=== PATIENT | male | born 1990 | race Caucasian/White ===

== ENCOUNTER 2017-12-04 18:53 | Emergency (ER) | payer BC ==
[2017-12-04] MEDS: ADACEL/BOOSTRIX VACCINE (DIPHTH/PERTUSS/ACELL/TETANUS)0.5ML SYR (90715) IM (20:45)
== END 2017-12-04 21:10 | disposition home or self-care (01) ==
LOC: M ED 18:53
DX: S61.212A Laceration without foreign body of right middle finger without damage to nail, initial encounter (principal); W45.8XXA Other foreign body or object entering through skin, initial encounter; Y92.009 Unspecified place in unspecified non-institutional (private) residence as the place of occurrence of the external cause; Y93.G1 Activity, food preparation and clean up
CPT/HCPCS: 90715

== ENCOUNTER 2018-10-05 09:41 | Emergency (ER) | payer BC, SELFPAY ==
[~2018-10-05] VITALS: Ht 182.9 cm; Wt 44.4 kg
[2018-10-05 09:42] VITALS: BP 156/85
[2018-10-05] MEDS ORDERED: PARO20TA4 PO (09:47)
[2018-10-05] MEDS ORDERED: PARO20TA3 PO (09:52)
== END 2018-10-05 10:18 | disposition home or self-care (01) ==
LOC: M ED 09:41
DX: Z76.0 Encounter for issue of repeat prescription (principal); F41.9 Anxiety disorder, unspecified; Z79.899 Other long term (current) drug therapy

== ENCOUNTER → 2019-05-18 | Outpatient (REF) | payer BC ==
[~2019-05-18] MED LIST: PARO20TA3 PO; PARO20TA4 PO
[2019-05-18 21:04] LABS: BASO # 0.1 10^3/uL (0.0-0.2); BASO % 0.7 % (0.0-1.0); EOS # 0.2 10^3/uL (0.0-0.5); EOS % 2.4 % (0.0-3.0); HEMATOCRIT 44.1 % (42.0-52.0); HEMOGLOBIN 15.5 g/dl (13.5-17.5); LYMPH # 1.5 10^3/uL (1.5-5.0); LYMPH % 17.4 % (24.0-44.0); MEAN CORPUSCULAR HEMOGLOBIN 30.3 pg (27.0-33.0); MEAN CORPUSCULAR HGB CONC 35.1 g/dl (32.0-36.5); MEAN CORPUSCULAR VOLUME 86.1 fl (80.0-96.0); MONO # 0.6 10^3/uL (0.0-0.8); MONO % 6.8 % (0.0-5.0); NEUTROPHILS # 6.1 10^3/uL (1.5-8.5); NEUTROPHILS % 72.3 % (36.0-66.0); PLATELET COUNT, AUTOMATED 243 10^3/uL (150-450); RED BLOOD COUNT 5.12 10^6/uL (4.30-6.10); WHITE BLOOD COUNT 8.5 10^3/uL (4.0-10.0)
[2019-05-18 21:12] LABS: ALBUMIN 4.5 GM/DL (3.2-5.2); ALT/SGPT 60 U/L (12-78); BLOOD UREA NITROGEN 14 MG/DL (7-18); CARBON DIOXIDE LEVEL 27 MEQ/L (21-32); CHLORIDE LEVEL 107 MEQ/L (98-107); CREATININE FOR GFR 1.26 MG/DL (0.70-1.30); GLOMERULAR FILTRATION RATE > 60.0 (>60); GLUCOSE, FASTING 80 MG/DL (70-100); LDH LACTATE DEHYDROGENASE 217 U/L (87-241); POTASSIUM SERUM 3.7 MEQ/L (3.5-5.1); SODIUM LEVEL 142 MEQ/L (136-145); TOTAL PROTEIN 6.8 GM/DL (6.4-8.2)
[2019-05-18 22:01] LABS: HIV 1&2 SCREEN CENTAUR NEGATIVE (NEGATIVE)
[2019-05-21 11:31] LABS: HEPATITIS C VIRUS ABY INDEX 0.1 INDEX (<0.8)
== END ==
LOC: M SFHCLERA 15:29
PROVIDERS: ATTEND Nurse Practitioner Family
DX: Z00.00 Encounter for general adult medical examination without abnormal findings (principal); R79.89 Other specified abnormal findings of blood chemistry; Z11.59 Encounter for screening for other viral diseases; Z11.4 Encounter for screening for human immunodeficiency virus [HIV]

== ENCOUNTER 2021-07-21 08:25 | Emergency (ER) | payer BC, SELFPAY ==
[~2021-07-21] VITALS: Ht 182.9 cm; Wt 102.3 kg
--- OUTSIDE RECORDS SUMMARY | 2021-07-21 08:32 | CCD ---
Author Author [facility] Organization [facility] Address Unknown Phone Unavailable Care Team Providers Care Nurse Quality Name Role Phone EDDIE PALOMINO Unavailable Unavailable EDDIE PALOMINO Unavailable Unavailable Raúl, R Noemy SUPERVISOR CUSTOMER SERVICES Unavailable Unavailable Raúl, R Noemy SUPERVISOR CUSTOMER SERVICES Unavailable Unavailable Raúl, R Noemy SUPERVISOR CUSTOMER SERVICES Unavailable Unavailable Raúl, R Noemy SUPERVISOR CUSTOMER SERVICES Unavailable Unavailable Raúl, R Noemy SUPERVISOR CUSTOMER SERVICES Unavailable Unavailable Raúl, R Noemy SUPERVISOR CUSTOMER SERVICES Unavailable Unavailable Raúl, R Noemy SUPERVISOR CUSTOMER SERVICES Unavailable Unavailable Raúl, R Noemy SUPERVISOR CUSTOMER SERVICES Unavailable Unavailable Raúl, R Noemy SUPERVISOR CUSTOMER SERVICES Unavailable Unavailable Raúl, R Noemy SUPERVISOR CUSTOMER SERVICES Unavailable Unavailable Raúl, R Noemy SUPERVISOR CUSTOMER SERVICES Unavailable Unavailable Raúl, R Noemy SUPERVISOR CUSTOMER SERVICES Unavailable Unavailable Raúl, R Noemy SUPERVISOR CUSTOMER SERVICES Unavailable Unavailable Raúl, R Noemy SUPERVISOR CUSTOMER SERVICES Unavailable Unavailable Raúl, R Noemy SUPERVISOR CUSTOMER SERVICES Unavailable Unavailable Raúl, R Noemy SUPERVISOR CUSTOMER SERVICES Unavailable Unavailable Raúl, R Nomey SUPERVISOR CUSTOMER SERVICES Unavailable Unavailable Raúl, R Noemy SUPERVISOR CUSTOMER SERVICES Unavailable Unavailable Raúl, R Noemy SUPERVISOR CUSTOMER SERVICES Unavailable Unavailable Raúl, R Noemy SUPERVISOR CUSTOMER SERVICES Unavailable Unavailable Raúl, R Noemy SUPERVISOR CUSTOMER SERVICES Unavailable Unavailable Raúl, R Noemy SUPERVISOR CUSTOMER SERVICES Unavailable Unavailable Raúl, R Noemy SUPERVISOR CUSTOMER SERVICES Unavailable Unavailable Raúl, R Noemy SUPERVISOR CUSTOMER SERVICES Unavailable Unavailable Raúl, R Noemy SUPERVISOR CUSTOMER SERVICES Unavailable Unavailable Raúl, R Noemy SUPERVISOR CUSTOMER SERVICES Unavailable Unavailable Raúl, R Noemy SUPERVISOR CUSTOMER SERVICES Unavailable Unavailable Raúl, R Noemy SUPERVISOR CUSTOMER SERVICES Unavailable Unavailable Raúl, R Noemy SUPERVISOR CUSTOMER SERVICES Unavailable Unavailable Raúl, R Noemy SUPERVISOR CUSTOMER SERVICES Unavailable Unavailable Raúl, R Noemy SUPERVISOR CUSTOMER SERVICES Unavailable Unavailable Raúl, R Noemy SUPERVISOR CUSTOMER SERVICES Unavailable Unavailable Raúl, R Noemy SUPERVISOR CUSTOMER SERVICES Unavailable Unavailable Raúl, R Noemy SUPERVISOR CUSTOMER SERVICES Unavailable Unavailable Raúl, R Noemy SUPERVISOR CUSTOMER SERVICES Unavailable Unavailable Raúl, R Noemy SUPERVISOR CUSTOMER SERVICES Unavailable Unavailable Raúl, R Noemy SUPERVISOR CUSTOMER SERVICES Unavailable Unavailable Raúl, R Noemy SUPERVISOR CUSTOMER SERVICES Unavailable Unavailable Raúl, R Noemy SUPERVISOR CUSTOMER SERVICES Unavailable Unavailable Raúl, R Noemy SUPERVISOR CUSTOMER SERVICES Unavailable Unavailable Re-disclosure Warning The records that you are about to access may contain information from federally-assisted alcohol or drug abuse programs. If such information is present, then the following federally mandated warning applies: This information has been disclosed to you from records protected by federal confidentiality rules (42 CFR part 2). The federal rules prohibit you from making any further disclosure of this information unless further disclosure is expressly permitted by the written consent of the person to whom it pertains or as otherwise permitted by 42 CFR part 2. A general authorization for the release of medical or other information is NOT sufficient for this purpose. The Federal rules restrict any use of the information to criminally investigate or prosecute any alcohol or drug abuse patient.The records that you are about to access may contain highly sensitive health information, the redisclosure of which is protected by Article 27-F of the [facility] Public Health law. If you continue you may have access to information: Regarding HIV / AIDS; Provided by facilities licensed or operated by the [facility] Office of Mental Health; or Provided by the [facility] Office for People With Developmental Disabilities. If such information is present, then the following [facility] mandated warning applies: This information has been disclosed to you from confidential records which are protected by state law. State law prohibits you from making any further disclosure of this information without the specific written consent of the person to whom it pertains, or as otherwise permitted by law. Any unauthorized further disclosure in violation of state law may result in a fine or usp sentence or both. A general authorization for the release of medical or other information is NOT sufficient authorization for further disc losure. Encounters Encounter Providers Location Date Indications Data Source(s ) Emergency Attender: EDDIE Clayer: Noemy Raúl Jean NP 05/29/2021 10:47:00 PM EDT - 05/29/2021 11:33:00 PM EDT [facility] Patient discharged. [place] [address] [facility] [address] 09/24/2020 12:00:00 AM EST eCW1 ([facility]) [place] [address] [facility] [address] 09/11/2020 12:00:00 AM EST eCW1 ([facility]) [place] [address] [facility] [place] [address] 08/15/2020 12:00:00 AM EST eCW1 ([facility]) Outpatient [address] [facility] [address] 06/24/2020 12:00:00 AM EDT eCW1 ([facility]) Immunizations Vaccine Date Status Description Data Source(s) COVID-19 VACCINE [facility] 05/22/2021 12:00:00 AM EDT completed [facility] Vaccine Series Complete: YESThis Data wa s Submitted to [facility] Via [facility]. COVID-19 VACCINE [facility] 05/01/2021 12:00:00 AM EDT completed [facility] Vaccine Series Complete: NOThis Data was Submitted to [facility]. Medications Medication Brand Name Start Date Product Form Dose Route Admi nistrative Instructions Pharmacy Instructions Status Indications Reaction Description Data Source(s) Acetaminophen 300 MG / Codeine Phosphate 30 MG Oral Ta blet 300-30 mg ACETAMINOPHEN WITH CODEINE 06/03/2021 12:00:00 AM EDT tablet 10 TAKE ONE TABLET BY MOUTH EVERY 4 HOURS NEEDED FOR ACUTE PAIN , MAXIMUM DAILY DOSE = 6 TABLETS TAKE ONE TABLET BY MOUTH EVERY 4 HOURS A S NEEDED FOR ACUTE PAIN , MAXIMUM DAILY DOSE = 6 TABLETS SOLD: 06/03/2021 [facility] 500 mg 05/30/2021 12:00:00 AM EDT tablet 21 TAKE ONE TABLET BY MOUTH THREE TIMES A DAY TAKE ONE TABLET BY MOUTH THREE TIMES A DAY SOLD: 05/30/2021 [facility] Paroxetine HCl 20 MG Paroxetine HCl 20 MG 09/25/2020 12:00:00 AM ES T 1.0 {tablet_in_the_morning} active Paroxeti ne HCl 20 MG eCW1 ([facility]) 20 mg 09/25/2020 12:00:00 AM EST tablet 90 TAKE ONE TABLET BY MOUTH EVERY MORNING TAKE ONE TABLET BY MOUTH EVERY MORNING SOLD: 09/25/2020 [facility] 20 mg 09/25/2020 12:00:00 AM EST tablet 90 TAKE ONE TABLET BY MOUTH EVERY MORNING TAKE ONE TABLET BY MOUTH EVERY MORNING SOLD: 06/16/2021 [facility] 20 mg 09/25/2020 12:00:00 AM EST tablet 90 TAKE ONE TABLET BY MOUTH EVERY MORNING TAKE ONE TABLET BY MOUTH EVERY MORNING SOLD: 03/16/2021 [facility] 20 mg 09/25/2020 12:00:00 AM EST tablet 90 TAKE ONE TABLET BY MOUTH EVERY MORNING TAKE ONE TABLET BY MOUTH EVERY MORNING SOLD: 12/18/2020 [facility] 25 mg 09/16/2020 12:00:00 AM EST tablet 90 TAKE ONE TABLET BY MOUTH WITH FOOD DAILY TAKE ONE TABLET BY MOUTH WITH FOOD DAILY SOLD: 03/16/2021 [facility] 25 mg 09/16/2020 12:00:00 AM EST tablet 90 TAKE ONE TABLET BY MOUTH WITH FOOD DAILY TAKE ONE TABLET BY MOUTH WITH FOOD DAILY SOLD: 12/18/2020 [facility] 25 mg 09/16/2020 12:00:00 AM EST tablet 90 TAKE ONE TABLET BY MOUTH WITH FOOD DAILY TAKE ONE TABLET BY MOUTH WITH FOOD DAILY SOLD: 09/18/2020 [facility] 50 mg 09/16/2020 12:00:00 AM EST tablet 90 TAKE ONE TABLET BY MOUTH ONCE A DAY TAKE ONE TABLET BY MOUTH ONCE A DAY SOLD: 09/18/2020 [facility] 25 mg 09/16/2020 12:00:00 AM EST tablet 90 TAKE ONE TABLET BY MOUTH WITH FOOD DAILY TAKE ONE TABLET BY MOUTH WITH FOOD DAILY SOLD: 06/16/2021 [facility] atomoxetine 40 MG Oral Capsule [Strattera] Strattera 40 MG S trattera 40 MG 08/15/2020 12:00:00 AM EST active Strattera 40 MG eCW1 ([facility]) atomoxetine 40 MG Oral Capsule [Strattera] Strattera 40 MG S trattera 40 MG 08/15/2020 12:00:00 AM EST active Strattera 40 MG eCW1 ([facility]) atomoxetine 40 MG Oral Capsule [Strattera] Strattera 40 MG S trattera 40 MG 08/15/2020 12:00:00 AM EST active Strattera 40 MG eCW1 ([facility]) atomoxetine 40 MG Oral Capsule [Strattera] Strattera 40 MG S trattera 40 MG 08/15/2020 12:00:00 AM EST active Strattera 40 MG eCW1 ([facility]) Sertraline 50 MG Oral Tablet Sertraline HCl 50 MG Sertraline HCl 50 MG 06/24/2020 12:00:00 AM EDT 1.0 {tablet} active Sertraline HCl 50 MG eCW1 ([facility]) Sertraline 50 MG Oral Tablet Sertraline HCl 50 MG Sertraline HCl 50 MG 06/24/2020 12:00:00 AM EDT 1.0 {tablet} active Sertraline HCl 50 MG eCW1 ([facility]) 50 mg 06/24/2020 12:00:00 AM EDT tablet 90 TAKE 1 TABLET BY MOUTH DAILY TAKE 1 TABLET BY MOUTH DAILY SOLD: 06/25/2020 [facility] Sertraline 50 MG Oral Tablet Sertraline HCl 50 MG Sertraline HCl 50 MG 06/24/2020 12:00:00 AM EDT 1.0 {tablet} active Sertraline HCl 50 MG eCW1 ([facility]) Sertraline 50 MG Oral Tablet Sertraline HCl 50 MG Sertraline HCl 50 MG 06/24/2020 12:00:00 AM EDT 1.0 {tablet} active Sertraline HCl 50 MG eCW1 ([facility]) 25 mg 03/14/2020 12:00:00 AM EDT tablet 90 TAKE ONE TABLET BY MOUTH EVERY DAY WITH FOOD TAKE ONE TABLET BY MOUTH EVERY DAY WITH FOOD SOLD: 06/20/2020 [facility] 20 mg 03/13/2020 12:00:00 AM EDT tablet 90 TAKE ONE TABLET BY MOUTH EVERY MORNING TAKE ONE TABLET BY MOUTH EVERY MORNING SOLD: 06/20/2020 [facility] Insurance Providers Payer name Policy type / Coverage type Policy ID Covered libertarian ID Covered libertarian's relationship to larson Policy Larson Plan Information [employer] - [employer]/B lue Shield [id number] Self [id number] RPR- FFS Self Pay [id number] Self [id number] SELF PAY [id number] S [id number] BCBS [facility] 190/690 [id number] SP [id number] SELF PAY O [id number] S [facility] O [id number] S [id number] [facility] O [id number] S [id number] [employer]BS [place] PPO 302/307 [id number] SP [id number] BCBS 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 Diagnosis 05/29/2021 10:47:00 PM [facility] K04.7 Periapical abscess without sinus PERIAPICAL ABSC ESS WITHOUT SINUS Diagnosis 05/29/2021 10:47:00 PM [facility] K08.89 OTHER SPECIFIED DISORDERS OF TEETH AND S UPPORTING STRUCTURES OTHER SPECIFIED DISORDERS OF TEETH AND SUPPORTING STRUCTURES Diagnosis 05/29/2021 10:47:00 PM [facility] R41.840 [id number] Difficulty concentrating Problem 06/24/2020 12:00:00 AM EDT eCW1 ([facility]) Surgeries/Procedures No Information Results ID Date Data Source [id number] 05/30/2021 03:56:00 AM EDT [facility] l Patient: SAM POLLACK Observation Report - [facility].VisitID: [id number] [place] [address] [phone], MRegistration Date/Time: 05/29/2021 21:12 Weight:102 kg (S). Height/Length:72 inches (S). BMI:30.5 PAST HISTORYProblems:Anxiety Reaction.Sinus Tachycardia. Additional Surgeries:no known surgeries. Medications:PARoxetine HCl Oral (Tablet 20 mg) 1 tablet, daily, last dose today.Metoprolol Tartrate Oral 25 mg, daily, last dose today. Allergies:No Known Drug Allergy. (Electronically signed by Eddie Palomino PA-C 05/30/2021 03:55) Name Value Range Interpretation Code Description Data Beronica rce(s) Supporting Document(s) ID Date Data Source [id number] 09/04/2020 12:00:00 AM EST [facility] Name Value Range Interpretation Code Description Data Beronica rce(s) Supporting Document(s) SARS-CoV2 Rapid Antigen [facility] This lab was ordered by [facility] and reported by [facility]. Procedure Social History Code Duration Value Status Description Data Source(s ) Smoking 08/15/2020 12:00:00 AM EST Never Smoker completed Never S moker eCW1 ([facility]) Smoking 08/15/2020 12:00:00 AM EST Never Smoker completed Never S moker eCW1 ([facility]) Smoking 08/15/2020 12:00:00 AM EST Never Smoker completed Never S moker eCW1 ([facility]) Smoking 08/15/2020 12:00:00 AM EST Never Smoker completed Never S moker eCW1 ([facility]) Smoking 06/24/2020 12:00:00 AM EDT Never Smoker completed Never S moker eCW1 ([facility]) Vital Signs ID Date Data Source UNK Name Value Range Interpretation Code Description Data Source(s) Body weight 212.8 [lb_av] 212.8 [lb_av] eCW1 ([facility]) Body height 72 [in_i] 72 [in_i] eCW1 ([facility]) Body mass index (BMI) [Ratio] 28.86 kg/m2 28.86 kg/m2 eCW1 ([facility]) Heart rate 64 /min 64 /min eCW1 ([facility]) Respiratory rate 17 /min 17 /min eCW1 ([facility]) Body temperature 98.4 [degF] 98.4 [degF] eCW1 ( [facility]) Systolic blood pressure 126 mm[Hg] 126 mm[Hg] e CW1 ([facility]) Diastolic blood pressure 70 mm[Hg] 70 mm[Hg] eCW1 ([facility]) Body height 72 [in_i] 72 [in_i] eCW1 ([facility]) Heart rate 88 /min 88 /min eCW1 ([facility]) Respiratory rate 16 /min 16 /min eCW1 ([facility]) Body temperature 99.0 [degF] 99.0 [degF] eCW1 ( [facility]) Systolic blood pressure 131 mm[Hg] 131 mm[Hg] e CW1 ([facility]) Diastolic blood pressure 73 mm[Hg] 73 mm[Hg] eCW1 ([facility]) Body weight 211 [lb_av] 211 [lb_av] eCW1 ([facility]) Body mass index (BMI) [Ratio] 28.61 kg/m2 28.61 kg/m2 eCW1 ([facility]) Patient Treatment Plan of Care Planned Activity Planned Date Details Description Data Source (s) Paroxetine HCl 20 MG 09/25/2020 12:00:00 AM EST eCW1 ([facility]) atomoxetine 40 MG Oral Capsule [Strattera] 08/15/2020 12:00:[address] eCW1 ([facility]) atomoxetine 40 MG Oral Capsule [Strattera] 08/15/2020 12:00:[address] eCW1 ([facility]) atomoxetine 40 MG Oral Capsule [Strattera] 08/15/2020 12:00:[address] eCW1 ([facility]) atomoxetine 40 MG Oral Capsule [Strattera] 08/15/2020 12:00:[address] eCW1 ([facility]) Sertraline 50 MG Oral Tablet 06/24/2020 12:00:00 AM EDT eCW1 ([facility]) Sertraline 50 MG Oral Tablet 06/24/2020 12:00:00 AM EDT eCW1 ([facility])
--- OUTSIDE RECORDS SUMMARY | 2021-07-21 08:32 | CCD | Continuity of Care Document ---
Author Author [facility] Address [address] [place] [address] Phone Care Team Providers Care Avionics Electrical Engineer Name Role Phone JB FRASER PCP Chief Complaint and Reason for Visit Reason for Visit TOOTH AND JAW PAIN/ SWELLING LEFT SIDE X 2 DAYS Health Concerns Health Concerns may be documented in an alternate section. Allergies, Adverse Reactions, Alerts No allergy information available. Social History Assigned Sex Male Problems No problem information available. Medications No medication information available. Immunizations No Immunization Information Available Medical Equipment No Medical Equipment Information available Procedures No procedure information available. Relevant Diagnostic Tests and/or Laboratory Data No known relevant diagnostic tests and/or laboratory data. Vital Signs No vital signs result information available. Insurance Providers Guarantor SAM POLLACK Address [address] [facility] [address] Contact Info. Home Phone: Payer Policy Id Coverage Id Subscriber's Name Subscriber Id Effective Date Expiration Date SELF PAY [id number] SAM POLLACK Encounters Encounter Location(s) [facility]/Admit Date Discharge/Depart Date Provider(s) Departed Emergency [facility] May 29, 2021 5:11pm May 29, 2021 7:33pm EDDIE PALOMINO Functional Status No Functional Status information available Mental Status No Mental Status Information Available Assessments No Assessments Information Available Goals Goals may be documented in an alternate section.
[2021-07-21] MEDS ORDERED: METO1TAB87 (08:45)
--- OUTSIDE RECORDS SUMMARY | 2021-07-21 09:54 | CCD ---
Author Author [facility] Organization [facility] Address Unknown Phone Unavailable Care Team Providers Care Office Technician Name Role Phone EDDIE PALOMINO Unavailable Unavailable EDIDE PALOMINO Unavailable Unavailable Raúl, R Noemy CHIEF OF FIELD OPERATIONS Unavailable Unavailable Raúl, R Noemy CHIEF OF FIELD OPERATIONS Unavailable Unavailable Raúl, R Noemy CHIEF OF FIELD OPERATIONS Unavailable Unavailable Raúl, R Noemy CHIEF OF FIELD OPERATIONS Unavailable Unavailable Raúl, R Noemy CHIEF OF FIELD OPERATIONS Unavailable Unavailable Raúl, R Noemy CHIEF OF FIELD OPERATIONS Unavailable Unavailable Raúl, R Noemy CHIEF OF FIELD OPERATIONS Unavailable Unavailable Raúl, R Noemy CHIEF OF FIELD OPERATIONS Unavailable Unavailable Raúl, R Noemy CHIEF OF FIELD OPERATIONS Unavailable Unavailable Raúl, R Noemy CHIEF OF FIELD OPERATIONS Unavailable Unavailable Raúl, R Noemy CHIEF OF FIELD OPERATIONS Unavailable Unavailable Raúl, R Noemy CHIEF OF FIELD OPERATIONS Unavailable Unavailable Raúl, R Noemy CHIEF OF FIELD OPERATIONS Unavailable Unavailable Raúl, R Noemy CHIEF OF FIELD OPERATIONS Unavailable Unavailable Raúl, R Noemy CHIEF OF FIELD OPERATIONS Unavailable Unavailable Raúl, R Noemy CHIEF OF FIELD OPERATIONS Unavailable Unavailable Raúl, R Noemy CHIEF OF FIELD OPERATIONS Unavailable Unavailable Raúl, R Noemy CHIEF OF FIELD OPERATIONS Unavailable Unavailable Raúl, R Noemy CHIEF OF FIELD OPERATIONS Unavailable Unavailable Raúl, R Noemy CHIEF OF FIELD OPERATIONS Unavailable Unavailable Raúl, R Noemy CHIEF OF FIELD OPERATIONS Unavailable Unavailable Raúl, R Noemy CHIEF OF FIELD OPERATIONS Unavailable Unavailable Raúl, R Noemy CHIEF OF FIELD OPERATIONS Unavailable Unavailable Raúl, R Noemy CHIEF OF FIELD OPERATIONS Unavailable Unavailable Raúl, R Noemy CHIEF OF FIELD OPERATIONS Unavailable Unavailable Raúl, R Noemy CHIEF OF FIELD OPERATIONS Unavailable Unavailable Raúl, R Noemy CHIEF OF FIELD OPERATIONS Unavailable Unavailable Raúl, R Noemy CHIEF OF FIELD OPERATIONS Unavailable Unavailable Raúl, R Noemy CHIEF OF FIELD OPERATIONS Unavailable Unavailable Raúl, R Noemy CHIEF OF FIELD OPERATIONS Unavailable Unavailable Raúl, R Noemy CHIEF OF FIELD OPERATIONS Unavailable Unavailable Raúl, R Noemy CHIEF OF FIELD OPERATIONS Unavailable Unavailable Raúl, R Noemy CHIEF OF FIELD OPERATIONS Unavailable Unavailable Raúl, R Noemy CHIEF OF FIELD OPERATIONS Unavailable Unavailable Raúl, R Noemy CHIEF OF FIELD OPERATIONS Unavailable Unavailable Raúl, R Noemy CHIEF OF FIELD OPERATIONS Unavailable Unavailable Raúl, R Noemy CHIEF OF FIELD OPERATIONS Unavailable Unavailable Raúl, R Noemy CHIEF OF FIELD OPERATIONS Unavailable Unavailable Raúl, R Noemy CHIEF OF FIELD OPERATIONS Unavailable Unavailable Raúl, R Noemy CHIEF OF FIELD OPERATIONS Unavailable Unavailable Re-disclosure Warning The records that [...] is protected by Article 27-F of the [facility] Public Health law. If you continue you may have access to information: Regarding HIV / AIDS; Provided by facilities licensed or operated by the [facility] Office of Mental Health; or Provided by the [facility] Office for People With Developmental Disabilities. If such information is present, then the following [facility] mandated warning applies: This information has been [...] law may result in a fine or [place] [facility] [place] sentence or both. A general authorization for the release of medical or other information is NOT sufficient authorization for further disc losure. Encounters Encounter Providers Location Date Indications Data Source(s ) Emergency Attender: EDDIE Clayer: Noemy Raúl Jean NP 05/29/2021 10:47:00 PM EDT - 05/29/2021 11:33:00 PM EDT [facility] Patient discharged. [place] [address] [facility] [address] 09/24/2020 12:00:00 AM EST eCW1 (Critical access hospital) [place] [address] [facility] [address] 09/11/2020 12:00:00 AM EST eCW1 (Critical access hospital) Outpatient [address] [facility] [place] [address] 08/15/2020 12:00:00 AM EST eCW1 (Critical access hospital) [place] [address] [facility] [address] 06/24/2020 12:00:00 AM EDT eCW1 (Critical access hospital) Immunizations Vaccine Date Status Description Data Source(s) COVID-19 VACCINE [facility] 05/22/2021 12:00:00 AM EDT completed [facility] Vaccine Series Complete: YESThis Data wa s Submitted to [facility]. COVID-19 VACCINE [facility] 05/01/2021 12:00:00 AM EDT completed [facility] Vaccine Series Complete: NOThis Data was Submitted to [facility] [employer]. Medications Medication Brand Name Start Date Product [...] active Paroxeti ne HCl 20 MG eCW1 ([facility]) 20 mg 09/25/2020 12:00:00 AM EST tablet [...] AM EST active Strattera 40 MG eCW1 ([facility]) atomoxetine 40 MG Oral Capsule [Strattera] Strattera 40 MG S trattera 40 MG 08/15/2020 12:00:00 AM EST active Strattera 40 MG eCW1 ([facility]) atomoxetine 40 MG Oral Capsule [Strattera] Strattera 40 MG S trattera 40 MG 08/15/2020 12:00:00 AM EST active Strattera 40 MG eCW1 ([facility]) atomoxetine 40 MG Oral Capsule [Strattera] Strattera 40 MG S trattera 40 MG 08/15/2020 12:00:00 AM EST active Strattera 40 MG eCW1 ([facility]) Sertraline 50 MG Oral Tablet Sertraline HCl 50 MG Sertraline HCl 50 MG 06/24/2020 12:00:00 AM EDT 1.0 {tablet} active Sertraline HCl 50 MG eCW1 ([facility]) Sertraline 50 MG Oral Tablet Sertraline HCl 50 MG Sertraline HCl 50 MG 06/24/2020 12:00:00 AM EDT 1.0 {tablet} active Sertraline HCl 50 MG eCW1 ([facility]) 50 mg 06/24/2020 12:00:00 AM EDT tablet 90 TAKE 1 TABLET BY MOUTH DAILY TAKE 1 TABLET BY MOUTH DAILY SOLD: 06/25/2020 [facility] Sertraline 50 MG Oral Tablet Sertraline HCl 50 MG Sertraline HCl 50 MG 06/24/2020 12:00:00 AM EDT 1.0 {tablet} active Sertraline HCl 50 MG eCW1 ([facility]) Sertraline 50 MG Oral Tablet Sertraline HCl 50 MG Sertraline HCl 50 MG 06/24/2020 12:00:00 AM EDT 1.0 {tablet} active Sertraline HCl 50 MG eCW1 ([facility]) 25 mg 03/14/2020 12:00:00 AM EDT tablet [...] type / Coverage type Policy ID Covered constitution party ID Covered constitution party's relationship to larson Policy [place] Plan Information [employer] - [place] [employer]/B lue Shield [id number] Self [id number] RPR- FFS Self Pay [id number] Self [id number] SELF PAY [id number] S [id number] [employer] [place] 190/690 [id number] SP [id number] SELF PAY O [id number] S [facility] O [id number] S [id number] [facility] O [id number] S [id number] SELF PAY ONLY [id number] SP [id number] [facility]BS [facility] 190/690 [id number] SP [id number] [employer]BS [place] PPO 302/307 [id number] SP [id number] Problems, Conditions, and Diagnoses Code Display Name Description Problem Type Effective Dates Data Source(s) Z87.891 Personal history of nicotine dependence PERSONAL HISTORY OF NICOTINE DEPENDENCE Diagnosis 05/29/2021 10:47:00 PM T [facility] 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 Diagnosis 05/29/2021 10:47:00 PM [facility] K04.7 Periapical abscess without sinus PERIAPICAL ABSC ESS WITHOUT SINUS Diagnosis 05/29/2021 10:47:00 PM [facility] K08.89 OTHER SPECIFIED DISORDERS OF TEETH AND S UPPORTING STRUCTURES OTHER SPECIFIED DISORDERS OF TEETH AND SUPPORTING STRUCTURES Diagnosis 05/29/2021 10:47:00 PM [facility] R41.840 [id number] Difficulty concentrating Problem 06/24/2020 12:00:00 AM EDT eCW1 ([facility]) Surgeries/Procedures No Information Results ID Date Data Source [id number] 05/30/2021 03:56:00 AM EDT [facility] l Patient: SAM POLLACK Observation Report - Physicians/Mid Levels [facility].VisitID: [id number] [place] [address] [phone], MRegistration Date/Time: 05/29/2021 21:12 Weight:102 kg (S). [...] Beronica rce(s) Supporting Document(s) SARS-CoV2 Rapid Antigen [facility] This lab was ordered by [facility] and reported by [facility]. Procedure Social History Code Duration Value Status Description Data Source(s ) Smoking 08/15/2020 12:00:00 AM EST Never Smoker completed Never S moker eCW1 ([facility]) Smoking 08/15/2020 12:00:00 AM EST Never Smoker completed Never S moker eCW1 ([facility]) Smoking 08/15/2020 12:00:00 AM EST Never Smoker completed Never S moker eCW1 ([facility]) Smoking 08/15/2020 12:00:00 AM EST Never Smoker completed Never S moker eCW1 ([facility]) Smoking 06/24/2020 12:00:00 AM EDT Never Smoker completed Never S moker eCW1 ([facility]) Vital Signs ID Date Data Source UNK Name Value Range Interpretation Code Description Data Source(s) Body weight 212.8 [lb_av] 212.8 [lb_av] eCW1 ([facility]) Body height 72 [in_i] 72 [in_i] eCW1 ([facility]) Body mass index (BMI) [Ratio] 28.86 kg/m2 28.86 kg/m2 eCW1 ([facility]) Heart rate 64 /min 64 /min eCW1 ([facility]) Systolic blood pressure 126 mm[Hg] 126 mm[Hg] e CW1 ([facility]) Diastolic blood pressure 70 mm[Hg] 70 mm[Hg] eCW1 ([facility]) Respiratory rate 17 /min 17 /min eCW1 ([facility]) Body temperature 98.4 [degF] 98.4 [degF] eCW1 ( [facility]) Heart rate 88 /min 88 /min eCW1 ([facility]) Body mass index (BMI) [Ratio] 28.61 kg/m2 28.61 kg/m2 eCW1 ([facility]) Body height 72 [in_i] 72 [in_i] eCW1 ([facility]) Respiratory rate 16 /min 16 /min eCW1 ([facility]) Body temperature 99.0 [degF] 99.0 [degF] eCW1 ( [facility]) Systolic blood pressure 131 mm[Hg] 131 mm[Hg] e CW1 ([facility]) Diastolic blood pressure 73 mm[Hg] 73 mm[Hg] eCW1 ([facility]) Body weight 211 [lb_av] 211 [lb_av] eCW1 ([facility]) Patient Treatment Plan of Care Planned Activity Planned Date Details Description Data Source (s) Paroxetine HCl 20 MG 09/25/2020 12:00:00 AM EST eCW1 ([facility]) atomoxetine 40 MG Oral Capsule [Strattera] 08/15/2020 12:00:[address] eCW1 ([facility]) atomoxetine 40 MG Oral Capsule [Strattera] 08/15/2020 12:00:[address] eCW1 ([facility]) atomoxetine 40 MG Oral Capsule [Strattera] 08/15/2020 12:00:[address] eCW1 ([facility]) atomoxetine 40 MG Oral Capsule [Strattera] 08/15/2020 12:00:[address] eCW1 ([facility]) Sertraline 50 MG Oral Tablet 06/24/2020 12:00:00 AM EDT eCW1 ([facility]) Sertraline 50 MG Oral Tablet 06/24/2020 12:00:00 AM EDT eCW1 ([facility])
[2021-07-21 10:12] LABS: RSV AMPLIFICATION NEGATIVE (NEGATIVE)
[2021-07-21 10:30] VITALS: BP 132/76
== END 2021-07-21 10:50 | disposition home or self-care (01) ==
LOC: M ED 08:25
DX: J06.9 Acute upper respiratory infection, unspecified (principal)

== ENCOUNTER → 2023-01-07 | Outpatient (CLI) | payer SELFPAY, BC ==
[~2023-01-07] MED LIST changes: +METO1TAB87
== END ==
LOC: M SOG 08:38
PROVIDERS: ATTEND Orthopaedic Surgery
DX: M25.511 Pain in right shoulder (principal)